=== PATIENT | female | born 1960 | race Caucasian/White ===

== ENCOUNTER 2017-04-23 02:28 | Emergency (ER) | payer OTHER ==
[~2017-04-23] VITALS: Ht 165.1 cm; Wt 110.0 kg
[~2017-04-23 02:28] MED LIST: BIOTCAP PO; GLIM4 PO; GLUCTAB PO; LANTUS2P SQ; LEVO150T7 PO; LISI-363 PO; NOVOLOGP2 SQ; OXYC1SOL5 PO
[2017-04-23 02:35] VITALS: BP 144/67; PULSE 103; RESP 20; TEMP 100.3; O2SAT 97
[2017-04-23] MEDS ORDERED: LEVO200T4 PO (02:42)
[2017-04-23] MEDS ORDERED: TETANUS/DIPHTHERIA TOXOID ADULT 0.5 ML VIAL IM ONE (02:45)
[2017-04-23] MEDS ORDERED: VANCOMYCIN INJ 2,000 MG in SODIUM CHLORID 0.9% 500 ML INJ 500 ML IV ONE (02:45)
[2017-04-23] MEDS ORDERED: SODIUM CHLOR 0.9% 1000 ML INJ 1,000 ML IV ONE (02:45)
[2017-04-23 03:24] LABS: AUTOMATED NEUTROPHIL # 7.4 TH/MM3 (1.8-7.7); BASOPHIL % 0.4 % (0.0-2.0); EOSINOPHIL # 0.1 TH/MM3 (0-0.4); HEMATOCRIT 40.2 % (35.0-46.0); LYMPHOCYTE # 1.9 TH/MM3 (1.0-4.8); MEAN CELL VOLUME 88.5 FL (80.0-100.0); MEAN CORPUSCULAR HEMOGLOBIN 29.5 PG (27.0-34.0); MEAN CORPUSCULAR HGB CONC 33.4 % (32.0-36.0); MONO % 8.6 % (0.0-8.0); PLATELET COUNT 92 TH/MM3 (150-450); RED BLOOD COUNT 4.55 MIL/MM3 (4.00-5.30); RED CELL DISTRIBUTION WIDTH 13.2 % (11.6-17.2); WHITE BLOOD COUNT 10.3 TH/MM3 (4.0-11.0)
--- NOTE | 2017-04-23 03:26 | PD ---
HPI Chief Complaint: Abdominal Pain Time Seen by Provider: 03:19 Travel History International Travel<30 days: No Contact w/Intl Traveler<30days: No Traveled to known affect area: No History of Present Illness HPI 56-year-old white female presents to emergency department for evaluation of a sore on her abdomen. She states that she had fallen on her pool deck on Friday. She states that she had pain along her abdomen more so on the right at the time. She did not notice any injury to the skin or abdomen. She does report being a diabetic and does inject insulin in her abdomen. Over the last few days she's had persistent pain in her upper abdomen more to the right. She also states that she noticed a black open sore on her midabdomen which has become increasingly painful, red and indurated. She has had a small amount of drainage. She admits to feeling rundown, weak and having subjective fever. Some nausea but no vomiting. She does not check her sugars. PFSH Past Medical History Narrative Medical Hypertension, diabetes, kidney stones, gallstones Cardiovascular Problems: Yes (htn) Diabetes: Yes Patient Takes Glucophage: Yes Diminished Hearing: No Genitourinary: Yes Hypertension: Yes Implanted Vascular Access Dvce: No Kidney Stones: Yes Musculoskeletal: No Neurologic: No Psychiatric: No Reproductive: No Respiratory: No Thyroid Disease: Yes Tetanus Vaccination: > 5 Years ?: Not : 6 Para: 4 Miscarriage: 2 Tubal Ligation: Yes Past Surgical History Narrative Surgical cHOLECYSTECTOMY, , appendectomy Appendectomy: Yes Section: Yes Cholecystectomy: Yes Other Surgery: Yes (appendectomy, csection,colesectomy) Social History Alcohol Use: No Tobacco Use: No Substance Use: No Allergies-Medications (Allergen,Severity, Reaction): Coded Allergies: No Known Allergies (Verified , 04/23/17) Reported Meds & Prescriptions Reported Meds & Active Scripts Active Reported Levothyroxine (Levothyroxine Sodium) 200 Mcg Tab 200 Mcg PO DAILY Lisinopril 20 mg (Lisinopril) 20 Mg Tab 20 Mg PO DAILY Novolog (Insulin Aspart) 100 Units/Ml Inj 5 Units SQ TIDAC Amaryl 4 Mg Tab (Glimepiride) 4 Mg Tab 4 Mg PO BID Lantus (Insulin Glargine) 100 Units/Ml Inj 20 Units SQ HS Glucophage XR 24 HR (Metformin HCl) 500 Mg Tab 1,000 Mg PO BID Review of Systems Except as stated in HPI: all other systems reviewed are Neg Physical Exam Narrative GENERAL: Well-developed, well-nourished in no apparent distress. Nontoxic appearing. HEAD: Normocephalic, atraumatic. EYES: Pupils equal round and reactive. Extraocular motions intact. No scleral icterus. No injection or drainage. ENT: Nose clear. Throat without erythema, tonsillar hypertrophy or exudate. Uvula midline. Airway patent. NECK: Trachea midline. Supple, nontender, moves head freely. No central bony tenderness or spasm. CARDIOVASCULAR: Regular rate and rhythm without murmurs, gallops, or rubs. RESPIRATORY: Clear to auscultation. Breath sounds equal bilaterally. No wheezes , rales, or rhonchi. GASTROINTESTINAL: Abdomen soft, patient has diffuse upper abdominal pain worse on the right than the left. She is a area of induration with erythema, tenderness and warmth to the mid anterior abdomen above the umbilicus. There is a area of black eschar. There is a pus discharge from around the edges of the eschar. Patient has a large abdominal pannus. No hepato-splenomegaly, or palpable masses. No guarding. EXTREMITIES: No clubbing, cyanosis, or edema. No joint tenderness. BACK: Nontender without deformity. No flank tenderness. NEUROLOGICAL: Awake, alert and oriented x 3 .Cranial nerves grossly intact. Motor and sensory grossly within normal limits. Normal speech. Data Data Last Documented VS Vital Signs Date Time Temp Pulse Resp B/P Pulse Ox O2 Delivery O2 Flow Rate FiO2 04/23/17 02:35 100.3 103 20 144/67 97 Orders Complete Blood Count With Diff (04/23/17 02:35) Comprehensive Metabolic Panel (04/23/17 02:35) Blood Culture (04/23/17 02:35) Urinalysis - C+S If Indicated (04/23/17 02:35) Wound Culture And Gram Stain (04/23/17 02:35) Sodium Chlor 0.9% 1000 Ml Inj (Ns 1000 M (04/23/17 02:45) Tetanus/Diphtheria Tox Adult (Tetanus/Di (04/23/17 02:45) Vancomycin Inj (Vancomycin Inj) (04/23/17 02:45) Ct Abd/Pel W Iv Contrast(Rout) (04/23/17 02:41) Blood Glucose (04/23/17 03:26) Insulin Human Regular Inj (Novolin R Inj (04/23/17 03:45) Labs Laboratory Tests Test 04/23/17 03:00 White Blood Count 10.3 TH/MM3 Red Blood Count 4.55 MIL/MM3 Hemoglobin 13.4 GM/DL Hematocrit 40.2 % Mean Corpuscular Volume 88.5 FL Mean Corpuscular Hemoglobin 29.5 PG Mean Corpuscular Hemoglobin 33.4 % Concent Red Cell Distribution Width 13.2 % Platelet Count 92 TH/MM3 Mean Platelet Volume 10.9 FL Neutrophils (%) (Auto) 72.0 % Lymphocytes (%) (Auto) 18.0 % Monocytes (%) (Auto) 8.6 % Eosinophils (%) (Auto) 1.0 % Basophils (%) (Auto) 0.4 % Neutrophils # (Auto) 7.4 TH/MM3 Lymphocytes # (Auto) 1.9 TH/MM3 Monocytes # (Auto) 0.9 TH/MM3 Eosinophils # (Auto) 0.1 TH/MM3 Basophils # (Auto) 0.0 TH/MM3 CBC Comment AUTO DIFF Differential Comment AUTO DIFF CONFIRMED Urine Color YELLOW Urine Turbidity CLEAR Urine pH 5.0 Urine Specific Lynn 1.021 Urine Protein NEG mg/dL Urine Glucose (UA) 1000 mg/dL Urine Ketones NEG mg/dL Urine Occult Blood NEG Urine Nitrite NEG Urine Bilirubin NEG Urine Urobilinogen LESS THAN 2.0 MG/DL Urine Leukocyte Esterase SMALL Urine RBC 1 /hpf Urine WBC 12 /hpf Urine Squamous Epithelial 2 /hpf Cells Urine Bacteria RARE /hpf Urine Mucus FEW /lpf Microscopic Urinalysis Comment CULT NOT INDICATED Sodium Level 136 MEQ/L Potassium Level 4.2 MEQ/L Chloride Level 100 MEQ/L Carbon Dioxide Level 27.1 MEQ/L Anion Gap 9 MEQ/L Blood Urea Nitrogen 21 MG/DL Creatinine 1.22 MG/DL Estimat Glomerular Filtration 45 ML/MIN Rate Random Glucose 357 MG/DL Calcium Level 9.5 MG/DL Total Bilirubin 0.7 MG/DL Aspartate Amino Transf 21 U/L (AST/SGOT) Alanine Aminotransferase 45 U/L (ALT/SGPT) Alkaline Phosphatase 87 U/L Total Protein 7.9 GM/DL Albumin 3.5 GM/DL MDM Medical Decision Making Medical Screen Exam Complete: Yes Emergency Medical Condition: Yes Medical Record Reviewed: Yes Interpretation(s) CT abdomen and pelvis: No acute intra-abdominal process. Patient has an area of cellulitis but no abscess. Nonincarcerated hernia. Laboratory Tests Test 04/23/17 03:00 White Blood Count 10.3 TH/MM3 Red Blood Count 4.55 MIL/MM3 Hemoglobin 13.4 GM/DL Hematocrit 40.2 % Mean Corpuscular Volume 88.5 FL Mean Corpuscular Hemoglobin 29.5 PG Mean Corpuscular Hemoglobin 33.4 % Concent Red Cell Distribution Width 13.2 % Platelet Count 92 TH/MM3 Mean Platelet Volume 10.9 FL Neutrophils (%) (Auto) 72.0 % Lymphocytes (%) (Auto) 18.0 % Monocytes (%) (Auto) 8.6 % Eosinophils (%) (Auto) 1.0 % Basophils (%) (Auto) 0.4 % Neutrophils # (Auto) 7.4 TH/MM3 Lymphocytes # (Auto) 1.9 TH/MM3 Monocytes # (Auto) 0.9 TH/MM3 Eosinophils # (Auto) 0.1 TH/MM3 Basophils # (Auto) 0.0 TH/MM3 CBC Comment AUTO DIFF Differential Comment AUTO DIFF CONFIRMED Urine Color YELLOW Urine Turbidity CLEAR Urine pH 5.0 Urine Specific Lynn 1.021 Urine Protein NEG mg/dL Urine Glucose (UA) 1000 mg/dL Urine Ketones NEG mg/dL Urine Occult Blood NEG Urine Nitrite NEG Urine Bilirubin NEG Urine Urobilinogen LESS THAN 2.0 MG/DL Urine Leukocyte Esterase SMALL Urine RBC 1 /hpf Urine WBC 12 /hpf Urine Squamous Epithelial 2 /hpf Cells Urine Bacteria RARE /hpf Urine Mucus FEW /lpf Microscopic Urinalysis Comment CULT NOT INDICATED Sodium Level 136 MEQ/L Potassium Level 4.2 MEQ/L Chloride Level 100 MEQ/L Carbon Dioxide Level 27.1 MEQ/L Anion Gap 9 MEQ/L Blood Urea Nitrogen 21 MG/DL Creatinine 1.22 MG/DL Estimat Glomerular Filtration 45 ML/MIN Rate Random Glucose 357 MG/DL Calcium Level 9.5 MG/DL Total Bilirubin 0.7 MG/DL Aspartate Amino Transf 21 U/L (AST/SGOT) Alanine Aminotransferase 45 U/L (ALT/SGPT) Alkaline Phosphatase 87 U/L Total Protein 7.9 GM/DL Albumin 3.5 GM/DL Differential Diagnosis MDM: High Differential diagnoses: Abscess, folliculitis, cellulitis, intra-abdominal injury Narrative Course IV access is obtained. Patient's given a liter bolus of normal saline. 2 g of vancomycin IV. Routine laboratory testing sent for analysis. Wound culture obtained. Diagnosis Primary Impression: Abdominal wall cellulitis Additional Impression: Contusion of abdominal wall, initial encounter Patient Instructions: General Instructions Additional Instructions: Rest. Elevation. keep clean and dry. Warm compresses. Daily wound care with soap, water and Neosporin. Three Advil every 6 hours. Bactrim DS and Keflex. Follow-up with a primary care doctor in 2-3 days. Return to the ER for any problems. Med/Other Pt SpecificInfo: Prescription(s) given Scripts Cephalexin 500 Mg Cap1,000 Mg PO Q6H #80 CAP Prov:Mynor Solis MD 04/23/17 Sulfamethoxazole-Trimethoprim (Bactrim DS)800-160 Mg Tab1 Tab PO BID #20 TAB Prov:Mynor Solis MD 04/23/17 Disposition: 01 DISCHARGE HOME Condition: Stable Huy Ferguson April 23, 2017 03:26
[2017-04-23 03:30] LABS: HEMO FLAGS AUTO DIFF
[2017-04-23] MEDS ORDERED: INSULIN HUMAN REGULAR 1,000 UNITS/10 ML VIAL IV PUSH ONE (03:45)
[2017-04-23 03:47] LABS: BACTERIA, URINE RARE /hpf; BLOOD, URINE NEG (NEG); GLUCOSE,URINE 1000 mg/dL (NEG); KETONE, URINE NEG (NEG); MUCUS URINE FEW /lpf (OCC); NITRITE,URINE NEG (NEG); SQUAMOUS EPITHELIAL CELL URINE 2 /hpf (0-5); URINE COLOR YELLOW (YELLW/STRAW)
[2017-04-23 03:51] LABS: COMMENT (UR) CULT NOT INDICATED; CULTURE IF INDICATED CULT NOT INDICATED
[2017-04-23 03:57] LABS: ANION GAP 9 MEQ/L (5-15); AST (GOT) 21 U/L (15-37); BICARBONATE 27.1 MEQ/L (21.0-32.0); BLOOD UREA NITROGEN 21 MG/DL (7-18); CHLORIDE 100 MEQ/L (98-107); GLOMERULAR FILTRATION RATE 45 ML/MIN (>89); POTASSIUM 4.2 MEQ/L (3.5-5.1); SODIUM (NA) 136 MEQ/L (136-145)
[2017-04-23 04:01] LABS: ALKALINE PHOSPHATASE 87 U/L (45-117); ALT (GPT) 45 U/L (10-53); TOTAL BILIRUBIN ADULT 0.7 MG/DL (0.2-1.0)
[2017-04-23] MEDS ORDERED: IOHEXOL 350 MG/ML 10 ML VIAL (for RAD DIAG) IV ONE (04:14)
[2017-04-23 04:22] LABS: SCAN/DIFF AUTO DIFF CONFIRMED
[2017-04-23] MEDS ORDERED: BACT800T5 PO (04:53)
[2017-04-23] MEDS ORDERED: CEPH500C PO (04:53)
--- NOTE | 2017-04-23 08:26 | RADRPT ---
EXAM DATE/TIME: 04/23/2017 04:14 [facility] COMPARISON: CT ABDOMEN & PELVIS W CONTRAST, November 15, 2015, 20:11. INDICATIONS : Swelling and redness umbilical region. Possible cellulitis. IV CONTRAST: 100 cc Omnipaque 350 (iohexol) IV ORAL CONTRAST: No oral contrast ingested. RADIATION DOSE: 16.97 CTDIvol (mGy) MEDICAL HISTORY : Cardiovascular disease. Hypertension. Diabetes mellitus type 2.Renal stones SURGICAL HISTORY : Appendectomy. Cholecystectomy. section.Tubal ENCOUNTER: Initial ACUITY: 3 days PAIN SCALE: 5/10 LOCATION: umbilical region TECHNIQUE: Volumetric scanning of the abdomen and pelvis was performed. Using automated exposure control and ad justment of the mA and/or kV according to patient size, radiation dose was kept as low as reasonably achievable to obtain optimal diagnostic quality images. FINDINGS: LOWER LUNGS: Mild atelectasis in the lung bases bilaterally. LIVER: Cirrhotic appearance. No evidence of focal mass or biliary ductal dilatation. Gallbladder surgically absent. SPLEEN: Enlarged without focal lesion PANCREAS: Within normal limits. KIDNEYS: Normal in size and shape. There is no mass, stone or hydronephrosis. ADRENAL GLANDS: Within normal limits. VASCULAR: There is no aortic aneurysm. BOWEL/MESENTERY: The stomach, small bowel, and colon demonstrate no acute abnormality. There is no free intraperitone al air or fluid. ABDOMINAL WALL: There is a 2.5 cm area of focal density in the subcutaneous tissues of the right paramedian supraumbi lical region with some overlying skin thickening very this may be a focus of phlegmonous change, [place] an injection site with inflammation can have a similar appearance. More inferiorly, a small umbil ical hernia contains a knuckle of small bowel without definite evidence of incarceration or obstructi on. There is some subcutaneous tissue induration in the infraumbilical region which is nonspecific. RETROPERITONEUM: There is no lymphadenopathy. BLADDER: No wall thickening or mass. REPRODUCTIVE: Within normal limits. INGUINAL: There is no lymphadenopathy or hernia. MUSCULOSKELETAL: Within normal limits for patient age. CONCLUSION: Cirrhosis with hepatosplenomegaly. Small focus of skin thickening and underlying subcutaneous tissue density in the right paramedian sup raumbilical region as above. Small umbilical hernia containing a knuckle of small bowel and mild infraumbilical subcutaneous tissu e induration which is nonspecific. Prashant Olmos MD on April 23, 2017 at 4:32 Board Certified Radiologist. This report was verified electronically.
== END 2017-04-23 07:40 | disposition home or self-care (01) ==
LOC: NEPD 02:28
DX: L03.311 Cellulitis of abdominal wall (principal); S30.1XXA Contusion of abdominal wall, initial encounter; E11.9 Type 2 diabetes mellitus without complications; I10 Essential (primary) hypertension; W18.30XA Fall on same level, unspecified, initial encounter; Y92.008 Other place in unspecified non-institutional (private) residence as the place of occurrence of the external cause; Z79.84 Long term (current) use of oral hypoglycemic drugs; Z79.4 Long term (current) use of insulin; Z23 Encounter for immunization
CPT/HCPCS: 74177; 80053; 81001; 85025; 87040; 87070; 90471; 90714; 96374; 96375; 99285; J1815; J3370; J7030; J7040; Q9967